=== PATIENT | male | born 1960 | race Caucasian/White ===

== ENCOUNTER 2017-02-10 04:18 | Emergency (ER) | payer SELFPAY ==
[~2017-02-10] VITALS: Ht 182.9 cm; Wt 102.1 kg
[2017-02-10] MEDS ORDERED: LEVO200T PO (04:43)
[2017-02-10 04:54] LABS: BASOPHILS # (AUTO) 0.1 10^3/uL (0.0-0.1); BASOPHILS % (AUTO) 1 % (0-10); EOSINOPHILS # (AUTO) 0.3 10^3/uL (0.0-0.3); EOSINOPHILS % (AUTO) 3 % (0-10); LYMPHOCYTES # (AUTO) 3.2 X 10^3 (1.0-4.0); LYMPHOCYTES % (AUTO) 28 % (12-44); MEAN CORPUSCULAR HEMOGLOBIN 33 PG (25-34); MEAN CORPUSCULAR HGB CONC 33 G/DL (32-36); MEAN CORPUSCULAR VOLUME 99 FL (80-99); MEAN PLATELET VOLUME 10.2 FL (7.4-10.4); MONOCYTES # (AUTO) 0.9 X 10^3 (0.0-1.0); MONOCYTES % (AUTO) 8 % (0-12); NEUTROPHILS # (AUTO) 6.9 X 10^3 (1.8-7.8); NEUTROPHILS % (AUTO) 60 % (42-75); PLATELET COUNT 197 10^3/uL (130-400); RED BLOOD COUNT 4.31 10^6/uL (4.35-5.85); RED CELL DISTRIBUTION WIDTH 14.1 % (10.0-14.5); WHITE BLOOD COUNT 11.4 10^3/uL (4.3-11.0)
[2017-02-10 05:13] LABS: ALANINE AMINOTRANSFERASE 30 U/L (0-55); ALBUMIN 4.4 GM/DL (3.2-4.5); ALCOHOL < 10 MG/DL (<10); ANION GAP 16 MMOL/L (5-14); ASPARTATE AMINO TRANSFERASE 70 U/L (5-34); BILIRUBIN,TOTAL 0.4 MG/DL (0.1-1.0); BLOOD UREA NITROGEN 26 MG/DL (7-18); BUN/CREATININE RATIO 23; CARBON DIOXIDE 25 MMOL/L (21-32); CHLORIDE 99 MMOL/L (98-107); CREATININE SERUM 1.11 MG/DL (0.60-1.30); GFR ESTIMATED > 60; GLUCOSE 126 MG/DL (70-105); POTASSIUM 4.5 MMOL/L (3.6-5.0); SODIUM 140 MMOL/L (135-145); TOTAL PROTEIN 7.7 GM/DL (6.4-8.2)
--- NOTE | 2017-02-10 05:27 | ED Fall/Injury ---
General Chief Complaint: Trauma-Non Activation Stated Complaint: FELL OUT OF SHOWER,LOWER BACK & RIB PAIN,COUGHING Nursing Triage Note: Patient reports falling out of the shower on 02/09 at 0930. patient reports L side rib pain and lower back pain. patient reports has been coughing up blood intermittently throughtout the day. patient reports fall took place in [place], [place]. Patient reports that he couldn't go to the hospital until now as he has 2 dogs and can't leave them in the care if it is warmer than 80 degrees so he doesn't go to half-way. Source: patient Exam Limitations: no limitations History of Present Illness Time seen by provider: 04:30 Initial Comments This 56-year-old man presents to the emergency room with injuries related to a fall yesterday at 09:30. Patient reports he was staying in a hotel and had a rapid temperature change in the shower water. This caused him to lunge out of the shower. He tripped over the edge of the bathtub landing on his left side and hyperextending his back. He did strike his head and complains of nausea since then. He was "dazed" but did not lose consciousness. He also complains of pain in the thoracic and lumbar spine as well as on the left lateral chest. He reports coughing up blood throughout the day. He denies use of any blood thinning medications. The incident happened in [place] and patient drove to [place] since the incident. Allergies and Home Medications Allergies Coded Allergies: No Known Drug Allergies (Unverified , 02/10/17) Home Medications Levothyroxine Sodium 200 Mcg Tablet, 200 MCG PO, (Reported) Constitutional: no symptoms reported Eyes: No Symptoms Reported Ears, Nose, Mouth, Throat: no symptoms reported Respiratory: see HPI Cardiovascular: no symptoms reported Gastrointestinal: see HPI Genitourinary: no symptoms reported Musculoskeletal: see HPI Skin: no symptoms reported Psychiatric/Neurological: See HPI Past Xixkhja-Zfebnq-Mwjcya Hx Patient Social History Alcohol Use: Denies Use Recreational Drug Use: No Smoking Status: Current Everyday Smoker Type Used: Cigarettes Recent Foreign Travel: No Contact w/Someone Who Travel: No Recent Infectious Disease Expo: No Surgeries HX Surgeries: No Respiratory Hx Respiratory Disorders: Yes (tobaccoism) Respiratory Disorders: Asthma Cardiovascular Hx Cardiac Disorders: No Neurological Hx Neurological Disorders: Yes Neurological Disorders: Neuropathy Reproductive System Hx Reproductive Disorders: No Genitourinary Hx Genitourinary Disorders: No Gastrointestinal Hx Gastrointestinal Disorders: No Musculoskeletal Hx Musculoskeletal Disorders: No Endocrine Hx Endocrine Disorders: Yes Endocrine Disorders: Hypothyroidsim, Diabetes, Non-Insulin dep HEENT HX ENT Disorders: No Cancer Hx Cancer: No Psychosocial Hx Psychiatric Problems: No Physical Exam Vital Signs Vital Sign - Last 12Hours 02/10/17 04:33 Temp 98.2 Pulse 80 Resp 18 B/P (MAP) 121/75 Pulse Ox 96 Capillary Refill : Less Than 3 Seconds General Appearance: WD/WN, no apparent distress HEENT: PERRL/EOMI, normal ENT inspection, TMs normal, pharynx normal Neck: non-tender, supple, normal inspection Cardiovascular: regular rate, rhythm, no edema, no murmur Respiratory: lungs clear, normal breath sounds, no respiratory distress, no accessory muscle use, other (left lateral chest wall tender to palpation) Gastrointestinal: normal bowel sounds, non tender, soft Back: normal inspection, no vertebral tenderness (midthoracic and mid lumbar tenderness) Extremities: normal inspection, no pedal edema 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, no motor/sensory deficits, alert, normal mood/affect, oriented x 3 Skin: normal color, warm/dry Tomás Coma Score Best Eye Response: (4) Open Spontaneously Best Verbal Response: (5) Oriented Best Motor Response: (6) Obeys Commands [place] Total: 15 Progress/Results/Core Measures Results/Orders Lab Results Laboratory Tests Test 02/10/17 04:45 02/10/17 05:55 Range/Units White Blood Count 11.4 H 4.3-11.0 10^3/uL Red Blood Count 4.31 L 4.35-5.85 10^6/uL Hemoglobin 14.1 13.3-17.7 G/DL Hematocrit 43 40-54 % Mean Corpuscular Volume 99 80-99 FL Mean Corpuscular Hemoglobin 33 25-34 PG Mean Corpuscular Hemoglobin Concent 33 32-36 G/DL Red Cell Distribution Width 14.1 10.0-14.5 % Platelet Count 197 130-400 10^3/uL Mean Platelet Volume 10.2 7.4-10.4 FL Neutrophils (%) (Auto) 60 42-75 % Lymphocytes (%) (Auto) 28 12-44 % Monocytes (%) (Auto) 8 0-12 % Eosinophils (%) (Auto) 3 0-10 % Basophils (%) (Auto) 1 0-10 % Neutrophils # (Auto) 6.9 1.8-7.8 X 10^3 Lymphocytes # (Auto) 3.2 1.0-4.0 X 10^3 Monocytes # (Auto) 0.9 0.0-1.0 X 10^3 Eosinophils # (Auto) 0.3 0.0-0.3 10^3/uL Basophils # (Auto) 0.1 0.0-0.1 10^3/uL Sodium Level 140 135-145 MMOL/L Potassium Level 4.5 3.6-5.0 MMOL/L Chloride Level 99 98-107 MMOL/L Carbon Dioxide Level 25 21-32 MMOL/L Anion Gap 16 H 5-14 MMOL/L Blood Urea Nitrogen 26 H 7-18 MG/DL Creatinine 1.11 0.60-1.30 MG/DL Estimat Glomerular Filtration Rate > 60 BUN/Creatinine Ratio 23 Glucose Level 126 H 70-105 MG/DL Calcium Level 10.0 8.5-10.1 MG/DL Total Bilirubin 0.4 0.1-1.0 MG/DL Aspartate Amino Transf (AST/SGOT) 70 H 5-34 U/L Alanine Aminotransferase (ALT/SGPT) 30 0-55 U/L Alkaline Phosphatase 63 40-136 U/L Total Protein 7.7 6.4-8.2 GM/DL Albumin 4.4 3.2-4.5 GM/DL Serum Alcohol < 10 <10 MG/DL Urine Color YELLOW Urine Clarity CLEAR Urine pH 6 5-9 Urine Specific [place] 1.020 1.016-1.022 Urine Protein NEGATIVE NEGATIVE Urine Glucose (UA) NEGATIVE NEGATIVE Urine Ketones NEGATIVE NEGATIVE Urine Nitrite NEGATIVE NEGATIVE Urine Bilirubin NEGATIVE NEGATIVE Urine Urobilinogen NORMAL NORMAL MG/DL Urine Leukocyte Esterase 1+ H NEGATIVE Urine RBC (Auto) NEGATIVE NEGATIVE Urine RBC RARE /HPF Urine WBC RARE /HPF Urine Squamous Epithelial Cells RARE /HPF Urine Crystals NONE /LPF Urine Bacteria NEGATIVE /HPF Urine Casts NONE /LPF Urine Mucus SMALL H /LPF Urine Culture Indicated NO Urine Opiates Screen NEGATIVE NEGATIVE Urine Oxycodone Screen NEGATIVE NEGATIVE Urine Methadone Screen NEGATIVE NEGATIVE Urine Propoxyphene Screen NEGATIVE NEGATIVE Urine Barbiturates Screen NEGATIVE NEGATIVE Ur Tricyclic Antidepressants Screen NEGATIVE NEGATIVE Urine Phencyclidine Screen NEGATIVE NEGATIVE Urine Amphetamines Screen NEGATIVE NEGATIVE Urine Methamphetamines Screen NEGATIVE NEGATIVE Urine Benzodiazepines Screen NEGATIVE NEGATIVE Urine Cocaine Screen NEGATIVE NEGATIVE Urine Cannabinoids Screen POSITIVE H NEGATIVE My Orders Orders - ELISEO BAXTER MD Alcohol (02/10/17 04:40) Cbc With Automated Diff (02/10/17 04:40) Comprehensive Metabolic Panel (02/10/17 04:40) Drug Screen Stat (Urine) (02/10/17 04:40) Ua Culture If Indicated (02/10/17 04:40) Saline Lock/Iv-Start (02/10/17 04:40) Ct Head/Cervical Spine Wo (02/10/17 04:42) Ct Thoracic/Lumbar Spine Wo (02/10/17 05:03) Ct Chest/Abdomen/Pelvis Wo (02/10/17 05:03) Rx-Albuterol Inhaler (Rx-Proair) (02/10/17 06:32) Vital Signs/I&O Vital Sign - Last 12Hours 02/10/17 02/10/17 04:33 06:39 Temp 98.2 98.2 Pulse 80 80 Resp 18 18 B/P (MAP) 121/75 Pulse Ox 96 96 Blood Pressure Mean: 90 Progress Note #1: Time: 05:15 Progress Note Patient refused IV and IV contrast, even after discussion of the benefits and the logic for their use. Progress Note #2: Time: 06:32 Progress Note No acute injuries were identified on CT imaging. Patient was offered Toradol, tramadol, and muscle relaxers. Patient refused all of these treatment options and pressured me for narcotics. No narcotics were administered. Patient is out of his rescue inhaler for asthma. An inhaler was dispensed. Diagnostic Imaging Diagonstic Imaging: CT Plain Films/CT/US/NM/MRI: chest, abdomen, pelvis Comments CT chest, abdomen and pelvis viewed by me and [facility] report reviewed. No acute injuries identified. Diagonstic Imaging: CT Plain Films/CT/US/NM/MRI: c-spine, head Comments CT head and C-spine viewed by me and [facility] report reviewed. No acute injuries identified. Diagonstic Imaging: CT Plain Films/CT/US/NM/MRI: other (thoracolumbar spine) Comments CT of the thoracic or lumbar spine viewed by me and [facility] report reviewed. No acute injuries identified. Degenerative changes noted. Departure Impression Impression: Primary Impression: Fall in bathtub Qualified Codes: W18.2XXA - Fall in (into) shower or empty bathtub, initial encounter Additional Impressions: Concussion without loss of consciousness Qualified Codes: S06.0X0A - Concussion without loss of consciousness, initial encounter Upper back pain Lower back pain Qualified Codes: M54.5 - Low back pain Asthma Qualified Codes: J45.909 - Unspecified asthma, uncomplicated Disposition: 01 HOME, SELF-CARE Condition: Stable Departure-Patient Inst. Decision time for Depature: 06:30 Referrals: NO,LOCAL PHYSICIAN (PCP) Primary Care Physician Patient Instructions: Low Back Pain in Adults, Upper Back Pain Add. Discharge Instructions: You may take naproxen up to 500 mg twice daily. Add Tylenol (acetaminophen) up to 1000 mg every 6 hours as needed for additional pain relief. Gentle heat and rest should also help your pain. Return to care if symptoms worsen. All discharge instructions reviewed with patient and/or family. Voiced understanding. ELISEO BAXTER MD Feb 10, 2017 05:27
[2017-02-10 06:12] LABS: BILIRUBIN,URINE NEGATIVE (NEGATIVE); KETONES,URINE NEGATIVE (NEGATIVE); LEUKOCYTE ESTERASE ,URINE 1+ (NEGATIVE); NITRITE,URINE NEGATIVE (NEGATIVE); PH,URINE 6 (5-9); PROTEIN,URINE NEGATIVE (NEGATIVE); UROBILINOGEN,URINE NORMAL (NORMAL)
[2017-02-10 06:13] LABS: SQUAMOUS EPITHELIAL CELL,UR RARE /HPF; WBC,URINE RARE /HPF
[2017-02-10] MEDS ORDERED: RX-ALBUTEROL INHALER (PROAIR) 8 GM IH STA (06:32)
[2017-02-10 06:39] VITALS: BP 121/75
--- NOTE | 2017-02-10 07:44 | Diagnostic Imaging Report ---
PROCEDURE: CT chest, abdomen, and pelvis without contrast. : Multiple contiguous axial images were obtained through the chest, abdomen, and pelvis without the use of intravenous contrast. INDICATION: Status post fall one day earlier. Pain and soreness. TECHNIQUE: Noncontrast CT imaging of the chest, abdomen and pelvis. CORRELATION STUDY: None FINDINGS: CT CHEST: Evaluation of the mediastinal structures limited given lack of intravenous contrast. No suggestion for mediastinal hematoma. Heart size enlarged with rather dense coronary artery calcifications. Small pericardial effusion present. Slight wall thickening lower esophagus. Lung escalona are clear without evidence for infiltrate, effusion or pneumothorax. Minimal dependent atelectasis. Trace pleural effusions. There does appear to be old healed fractures left 9th through 11th posterior ribs. No definitive evidence for an acute bony abnormality. CT ABDOMEN and PELVIS: Unenhanced liver with few calcified granulomas. Calcified granulomas in the spleen. Pancreas, gallbladder and adrenal glands are unremarkable. Atherosclerosis of the aorta and its major branches. Ectasia of the right common iliac artery. Nonobstructing calcification of the right kidney indeterminate between vascular versus nephrolithiasis. No obstructive uropathy. Gastrointestinal tract demonstrates no obstruction or inflammation. Fat-containing left inguinal hernia. Urinary bladder is relatively decompressed. Prostate gland unremarkable. IMPRESSION: CT CHEST: 1. Negative for acute traumatic abnormality about the chest. 2. Cardiac enlargement with rather significant coronary artery calcification. Small pericardial effusion. 3. Old healed left posterior rib fractures. CT ABDOMEN and PELVIS: 1. Negative for acute traumatic abnormality about the abdomen and/or pelvis. 2. Aortoiliac vascular calcifications. A preliminary report was provided by [employer]. Dictated by: Dictated on workstation # [id number]
--- NOTE | 2017-02-10 07:47 | Diagnostic Imaging Report ---
INDICATION: One day post fall. Pain and soreness. TECHNIQUE: Noncontrast CT imaging of the thoracic and lumbar spine with sagittal and coronal reformatted images. FINDINGS: Demonstrated mild rightward curvature of the mid aspect. There is no acute fracture. Posterior elements intact. There is marked asymmetric narrowing at the T5-T6 intervertebral disc space. Reactive endplate sclerosis present. There is marked disc space narrowing at the C6-C7 and C7-T1 disc space with reactive sclerosis as well. Endplate osteophyte formation does result in osseous narrowing of neuroforamina at these levels. There may have been prior fracture at the T1 spinous process, not acute. Lumbar spinal alignment demonstrates trace retrolisthesis L4 on L5. Marked narrowing at the L4-L5 intervertebral disc space. There is mild posterior facet hypertrophy within lower lumbar spine. There is irregularity about the anterior superior L3 endplate compatible with limbus vertebrae. IMPRESSION: 1. Negative for acute fracture or traumatic subluxation thoracic spine. Rather severe narrowing T5-T6 intervertebral disc space. Also appears to be marked narrowing of the lower cervical and cervicothoracic disc spaces. 2. Negative for acute fracture of the lumbar spine. Marked degenerative changes L4-L5 level with reactive end plate sclerosis. A preliminary report was provided by [employer]. Dictated by: Dictated on workstation # [id number]
--- NOTE | 2017-02-10 07:50 | Diagnostic Imaging Report ---
PROCEDURE: CT head and CT cervical spine without contrast. TECHNIQUE: Multiple contiguous axial images were obtained through the brain and cervical spine without the use of intravenous contrast. Sagittal and coronal reformations through the cervical spine were then performed. INDICATION: One day post fall, pain and soreness. CORRELATION STUDY: None FINDINGS: CT HEAD: Ventricles and sulci are unremarkable for the patient's age. No midline shift or mass effect. No abnormal areas of decreased attenuation to suggest edema. No intracranial hemorrhage. CT CERVICAL SPINE: Reformatted images demonstrate some straightening and reversal. No definitive evidence for acute fracture. Odontoid intact. Posterior elements intact but demonstrate asymmetric areas of hypertrophic facet arthropathy. Rather marked disc space narrowing and degenerative changes particularly at the C5-C6, C6-C7 and C7-T1 levels. Endplate osteophyte does result in some osseous narrowing of the neuroforamina. There is vascular calcification of the carotid bifurcations. Lung apices demonstrate a few small blebs. IMPRESSION: CT HEAD: 1. Negative for acute traumatic intracranial abnormality. CT CERVICAL SPINE: 1. Negative for acute fracture or traumatic subluxation. 2. Rather advanced multilevel cervical spondylosis with disc space narrowing lower cervical spine resulting in osseous narrowing of the neuroforamina. A preliminary report was provided by [employer]. Dictated by: Dictated on workstation # [id number]
== END 2017-02-10 06:39 | disposition home or self-care (01) ==
LOC: ER 04:25
DX: S06.0X9A Concussion with loss of consciousness of unspecified duration, initial encounter (principal); M54.6 Pain in thoracic spine; M54.5 Low back pain; J45.909 Unspecified asthma, uncomplicated; E03.9 Hypothyroidism, unspecified; E11.40 Type 2 diabetes mellitus with diabetic neuropathy, unspecified; F17.210 Nicotine dependence, cigarettes, uncomplicated; W01.198A Fall on same level from slipping, tripping and stumbling with subsequent striking against other object, initial encounter; Y92.002 Bathroom of unspecified non-institutional (private) residence as the place of occurrence of the external cause
CPT/HCPCS: 36415; 70450; 71250; 72125; 72128; 72131; 74176; 80053; 80306; 80320; 81000; 85025; 99283